=== PATIENT | male | born 1965 | race Two or more races ===

== ENCOUNTER 2020-12-21 05:30 | Day surgery (SDC) | payer OTHER ==
[~2020-12-21 05:30] MED LIST: SYNTHROID200 MCG PO
== END 2020-12-21 12:55 | disposition home or self-care (01) ==
LOC: CIR.AMB 05:30
PROVIDERS: ATTEND Otolaryngology Otology & Neurotology
DX: H72.01 Central perforation of tympanic membrane, right ear (principal); Z20.822 Contact with and (suspected) exposure to COVID-19

== ENCOUNTER 2021-04-09 15:15 | Emergency (ER) | payer OTHER ==
[~2021-04-09] VITALS: Ht 175.3 cm; Wt 99.3 kg
[2021-04-09] MEDS ORDERED: HYDROCHLOROTHIA25 MG (15:20)
[2021-04-09] MEDS ORDERED: SINGULAIR 10MG10 MG (15:20)
[2021-04-09] MEDS ORDERED: ZYRTEC10 M3 (15:21)
[2021-04-09] MEDS ORDERED: TAMS0.4C PO (18:14)
[2021-04-09] MEDS ORDERED: PERCOCET 5-3251 EACH PO (18:14)
[2021-04-09] MEDS ORDERED: CIPROFLOXACIN500 MG PO (18:14)
== END 2021-04-09 19:03 | disposition home or self-care (01) ==
LOC: ER 15:15
DX: N20.1 Calculus of ureter (principal)